=== PATIENT | male | born 1975 | race Two or more races ===

== ENCOUNTER 2019-11-17 08:38 | Emergency (ER) | payer MEDICAID, OTHER ==
[~2019-11-17] VITALS: Ht 167.6 cm; Wt 108.0 kg
[2019-11-17 09:32] VITALS: BP 132/94
== END 2019-11-17 11:31 | disposition home or self-care (01) ==
LOC: ER 08:38
DX: S93.402A Sprain of unspecified ligament of left ankle, initial encounter (principal); W18.49XA Other slipping, tripping and stumbling without falling, initial encounter; Y93.89 Activity, other specified; Y92.89 Other specified places as the place of occurrence of the external cause; Y99.0 Civilian activity done for income or pay
CPT/HCPCS: 73610

== ENCOUNTER 2023-01-24 08:59 | Emergency (ER) | payer SELFPAY ==
[~2023-01-24] VITALS: Ht 162.6 cm; Wt 100.0 kg
[2023-01-24 09:23] VITALS: BP 138/92; PULSE 105; RESP 18; O2SAT 96
[2023-01-24] MEDS ORDERED: IBUP-1456 PO (10:13)
[2023-01-24] MEDS ORDERED: IBUPROFEN 800 MG TAB PO ONE (10:15)
== END 2023-01-24 10:18 | disposition home or self-care (01) ==
LOC: ER 08:59
DX: S93.402A Sprain of unspecified ligament of left ankle, initial encounter (principal); X50.1XXA Overexertion from prolonged static or awkward postures, initial encounter; Y93.89 Activity, other specified; Y92.89 Other specified places as the place of occurrence of the external cause; Y99.8 Other external cause status
CPT/HCPCS: 73610